=== PATIENT | female | born 1995 | race Caucasian/White ===

== ENCOUNTER 2019-12-31 17:21 | Inpatient (IN) ==
[2019-12-31] MEDS ORDERED: NORCO-5 PO ONE (18:41)
--- NOTE | 2019-12-31 18:53 | PROVIDER DOCUMENTATION ---
HPI-Abdominal Pain/GI Problem - General Chief Complaint: Generalized Pain Stated Complaint: STOMACH PAIN Time Seen by Provider: 12/31/19 17:32 Source: patient Allergies/Adverse Reactions: Patient Allergies Allergy/AdvReac Type Severity Reaction Status Date / Time No Known Allergies Allergy Verified 09/05/14 20:38 Home Medications: Home Medication List Medication Instructions Recorded Confirmed Last Taken Type Pnv Cmb#95/Ferrous Fumarate/FA 1 tab PO DAILY 09/05/14 09/05/14 09/05/14 00:00 History [ Tablet] Oxycodone HCl/Acetaminophen 1 each PO Q4-6H PRN PRN #40 tablet 09/08/14 Unknown Rx [Percocet 10-325 mg Tablet] Oxycodone HCl/Acetaminophen 1 tab PO Q6H PRN PRN #40 tablet 09/08/14 Unknown Rx [Percocet 10-325 mg Tablet] Dicyclomine [Bentyl] 20 mg PO 4XDAY #30 cap 12/14/19 Unknown Rx Hydrocodone/Acetaminophen [Riva 1 ea PO Q6H PRN PRN #12 tab 12/14/19 Unknown Rx 5-325 Tablet] Promethazine [Phenergan] 25 mg PO Q6H PRN PRN #30 tab 12/14/19 Unknown Rx - History of Present Illness-ABD Nature of Presenting Problems: 24 yof with known cholelithiasis who was diagnosed on 12/17/19 via US presents with c/o continues pain and being out of pain medications. She was seen at clinic but they would not RX pain medications. She reports she has nausea without vomiting. Denies fever, chills. She does have nausea medications left but no pain meds Abdominal Pain Onset Location: reports: RUQ Pain Radiation: reports: shoulder (r) Quality of Pain: reports: aching Severity in ED: reports: moderate Onset/Duration: reports: other (since November 2019) Timing: reports: still present, intermittent Exposure to sick contacts?: No Associated Symptoms: reports: nausea Last BM: 24 hours ago Dark Stools Present?: reports: none noticed Rectal Bleeding: reports: none Rectal Pain: reports: none Emesis Description: reports: none Bruising or Bleeding Gums?: No Similar Symptoms Previously?: No Recently seen or treated by another doctor?: No Review of Systems - Adult - REVIEW OF SYSTEMS - ADULT Constitutional: reports: no symptoms reported. denies: see HPI, chills, fever, fatique, night sweats, weight gain, weight loss, other Eyes: reports: no symptoms reported. denies: see HPI, discharge, dry eyes, decreased vision, blurred vision, double vision, eye pain, redness, other Ears, Nose, Mouth & Throat: reports: no symptoms reported. denies: see HPI, ear discharge, ear pain, hearing loss, tinnitus, epistaxis, sinus problem, nose pain, loose teeth, mouth/dental pain, mouth swelling, hoarseness, throat pain, throat swelling, other Cardiovascular: reports: no symptoms reported. denies: see HPI, chest pain, edema, heart murmur, irregular heart rate, orthopnea, palpitations, poor circulation, PND, syncope, other Respiratory: reports: no symptoms reported. denies: see HPI, chronic cough, cough, dyspnea on exertion, excessive sputum production, hemoptysis, pleurisy, shortness of breath, wheezing, other Gastrointestinal: reports: see HPI, abdominal pain, nausea. denies: no symptoms reported, hematemesis, constipation, diarrhea, difficulty swallowing, frequent heartburn, poor appetite, rectal bleeding, vomiting, other Genitourinary: reports: no symptoms reported. denies: see HPI, dysuria, discharge, frequency, flank pain, frequent UTI's, hematuria, hesitency, incontinence, urinary retention, urgency, other Musculoskeletal: reports: no symptoms reported. denies: see HPI, bone pain, back pain, frequent leg cramps, joint pain, joint swelling, muscle aches, muscle weakness, neck pain, other Integumentary: reports: no symptoms reported. denies: see HPI, hives, hair loss, itching, mole changes, nail changes, rash, skin sores/ulcer, skin thickening, other Neurological: reports: no symptoms reported. denies: see HPI, ataxia, dizziness/vertigo, headache/migraines, loss of balance, numbness, paresthesia, seizure, slurred speech, syncope, tremors, other Psychiatric: reports: no symptoms reported. denies: see HPI, anxiety, anti-de pressant use, alcohol/drug dependence, depression, emotional problems, insomnia, panic attacks, suicidal thoughts, other Endocrine: reports: no symptoms reported. denies: see HPI, change in skin pigment, excessive sweating, goiter, cold intolerance, heat intolerance, increa sed hunger, increased thirst, polyuria, other Hematologic/Lymphatic: reports: no symptoms reported. denies: see HPI, blood clots, easy bruising, low blood count, lymphedema, prolonged bleeding, swollen lymph nodes, transfusions, other Allergic/Immunologic: reports: no symptoms reported. denies: see HPI, allergic reactions, allergic rhinitis, asthma, eczema, food allergy, frequent infections, hay fever, hives, positive PPD, urticaria, other Past History - Adult - PAST MEDICAL HISTORY-ADULT Review of Records: reports: Nursing Assessment Review, Social history reviewed & non-contributory. Major Childhood Illnesses: reports: denies history Cardiovascular: reports: denies history Respiratory: reports: denies history Gastrointestinal: reports: denies history Obstetrical/Gynecological: reports: denies history Genitourinary: reports: denies history Musculoskeletal: reports: denies history Neurological: reports: denies history Endocrine/Immune: reports: denies history Other Conditions: reports: denies history - PRIOR SURGERIES/PROCEDURES Surgical/Procedure History: reports: gastric bypass (VSG) - IMMUNIZATION STATUS Childhood Immunizations: See Nurse Assessment Flu Vaccine: See Nurse Assessment - FAMILY HISTORY Family History: reviewed, not pertinent Physical Exam-General - PHYSICAL EXAM-ADULT Initial Vital Signs Reviewed: Yes - CONSTITUTIONAL General Appearance: appears well, alert, no apparent distress - EYES Eyes: PERRL/EOMI, pink conjunctivae - HEAD, EARS, NOSE, MOUTH & THROAT HENMT: normocephalic/atraumatic, moist mucous membranes, normal ENT inspection - NECK Neck: non-tender, full range of motion, supple - RESPIRATORY Respiratory: chest non-tender, lungs clear, normal breath sounds, no pleuratic chest pain, no respiratory distress, no accessory muscle use - CARDIOVASCULAR Cardiovascular: normal peripheral pulses, regular rate, rhythm, no edema, no gallop, no JVD, no murmur - GASTROINTESTINAL (ABDOMEN) Abdominal Exam: normal bowel sounds, soft, tenderness - LYMPHATIC Lymphatic: no adenopathy - MUSCULOSKELETAL Back Exam: normal inspection, no CVA tenderness, no vertebral tenderness Extremity: normal range of motion, non-tender, normal gait Peripheral Pulses: radial (R): 2+, radial (L): 2+ - SKIN Integumentary: normal color, normal turgor, warm/dry - NEUROLOGIC Neurologic: grossly normal - PSYCHIATRIC Psych/Mental Status: normal mood/affect, oriented x 3 Progress - PLAN OF CARE/RESULTS Progress/Plan/Lab Results: Vital Signs - 8 hr 12/31/19 17:32 Temperature 98 F Pulse Rate 69 Respiratory Rate 18 Blood Pressure 103/64 O2 Sat by Pulse Oximetry 96 Orders Category Date Time Status CBC WITH ELECTRONIC DIFF [HEME] Stat Lab 12/31/19 17:37 Uncollected COMPREHENSIVE METABOLIC PANEL [CHEM] Stat Lab 12/31/19 17:37 Uncollected LIPASE [CHEM] Stat Lab 12/31/19 17:37 Uncollected UA NIMS W/REFLEX CULT [URINALYSIS] Stat Lab 12/31/19 17:37 Uncollected Hydrocodone/APAP 5 mg/325 mg [Riva-5] Med 12/31/19 18:41 Discontinued 1 each PO NOW ONE initial US: EXAM: US ABDOMEN-COMPLETE 12/17/2019 HISTORY: RT UPPER QUAD PN TECHNIQUE: Right upper quadrant ultrasound COMMENT: The pancreatic head and body are normal in appearance the remainder is obscured. The portions of the aorta and inferior vena cava which are visible are unremarkable. There is very poor detail seen in the liver. There is antegrade flow in the portal vein. There are multiple echoes in the gallbladder. The gallbladder is not distended and there is no evidence of para cholecystic fluid. There is no sonographic Ta sign. The common bile duct measures 5 mm. The kidneys are without evidence of hydronephrosis or mass. The spleen is not enlarged. There are no abnormal fluid collections. IMPRESSION: Cholelithiasis. Electronically signed by Maicol Terrazas 12/17/2019 1:37 PM 12/17/19 1337 Interpreting Physician: Maicol Terrazas MD Dictated Date/Time: 12/17/19 1336 cc: Akilah Sood; Akilah Sood Result Diagrams: 12/31/19 19:55 12/31/19 19:55 - ULTRASOUND (By Radiology) 1 US Study: Gallbladder Impression: Abnormal (1.Cholelithiasis no evidence of wall thickening, no sono veronica sugn 2. Dilated common bile duct measuring 8mm) - CONSULTS/PCP/HOSPITALIST Notification #1 *Consult/PCP/Hospitalist*: Dr. Rodriguez Time Discussed: 20:58 Consult Disposition: Admit (Repeat US, Begin Zosyn, Admit to hospitalist at [facility] for fidel) #2 Consult: Dr Joshi @ [id number] Time Discussed: 23:34 Consult Disposition: Admit Departure - Departure Date of Disposition Decision: 12/31/19 Time of Disposition Decision: 23:30 DIAGNOSIS: Cholelithiasis, Elevated liver enzymes Disposition: ADMITTED INPATIENT 09 Certified Medical Emergency: Emergent Condition: Stable Referrals and Follow-Ups: Troy Rodriguez MD [Primary Care Provider] - - Critical Care Note This patient required my direct & personal management of CC.: No Attestation - Physician/ JOHNATHAN Attestation Patient care was provided by Advanced Practice Provider:: Yes Advanced Practice Provider:: Yanelis De Leon Advanced Practice Provider documentation review:: The Mid-level provider documentation, treatment plan and medical decision making was reviewed by the physician who agrees with all treatment and medical decision making by the MLP. The physician spent face to face time with patient:: No Advanced Practice Provider documentation review:: Supervising physician onsite and consulted in the evaluation and care of this patient. The physician did not have a face to face encounter with the patient.
[2019-12-31 20:08] LABS: URINE SOURCE CLEAN CATCH
[2019-12-31 20:15] LABS: BASO# 0.04 X1000 (0.0-0.2); BASO% 0.6 % (0.0-0.8); EOS# 0.06 X1000 (0.0-0.7); EOS% 0.9 % (0.0-10.0); HEMATOCRIT 37.4 % (37.0-47.0); LYMPH# 1.62 X1000 (1.2-3.4); LYMPH% 25.3 % (20.5-51.1); MCHC 32.1 g/dL (33-37); MCV 87.4 FL (81-99); MONO# 0.36 X1000 (0.11-0.59); MONO% 5.6 % (1.7-9.3); MPV 12.6 FL (7.4-10.4); NEUT# 4.32 X1000 (1.4-6.5); NEUT% 67.6 % (42.2-75.2); PLT 204 X1000 (130-400); RBC 4.28 XMIL (4.2-5.4); RDW 12.9 % (11.5-14.5)
[2019-12-31 20:41] LABS: AGAP 15; ALBUMIN 4.8 g/dL (3.5-5.0); ALKALINE PHOSPHATASE 143 U/L (32-104); BUN 14 mg/dL (8-22); CALCIUM 9.2 mg/dL (8.8-10.2); CHLORIDE 103 mmol/L (98-107); COSMO 283; CREATININE 0.5 mg/dL (0.5-0.9); ESTIMATED GFR > 60; GLUCOSE 86 mg/dL (70-104); GOT 214 U/L (10-30); GPT 212 U/L (10-36); LIPASE 24 U/L (13-60); POTASSIUM 3.9 mmol/L (3.5-5.1); SODIUM 142 mmol/L (136-145); TCO2 24 mmol/L (25-35); TOTAL PROTEIN 7.8 g/dL (6.3-8.3)
[2019-12-31 20:48] LABS: UR EPITHELIAL CELLS <10 /HPF (<10); URINE BACTERIA NEGATIVE /HPF; URINE RBC <10 /HPF (<10); URINE WBC <10 /HPF (<10); URINE YEAST NONE SEEN
[2019-12-31 20:49] LABS: BILIRUBIN URINE NEGATIVE (NEGATIVE); BLOOD URINE NEGATIVE (NEGATIVE); COLOR YELLOW; GLUCOSE URINE NEGATIVE (NEGATIVE); KETONE URINE 60 mg/dL (NEGATIVE); TURBIDITY URINE CLEAR (CLEAR); URINE CASTS NONE SEEN; URINE CRYSTALS NONE SEEN; URINE SMALL ROUND CELLS NONE SEEN
[2019-12-31 20:50] LABS: LEUKOCYTES URINE NEGATIVE (NEGATIVE); NITRITE URINE NEGATIVE (NEGATIVE); PROTEIN URINE NEGATIVE (NEGATIVE); SP GRAVITY URINE 1.021; UROBILINOGEN URINE NORMAL (NORMAL)
[2019-12-31] MEDS ORDERED: ZOSYN 3.375 GM in NS 50 ML IV ONE (20:59)
[2020-01-01] MEDS ORDERED: NS 1,000 ML IV ONE (01:30)
[2020-01-01] MEDS ORDERED: ZOFRAN IV PRN (01:30)
[2020-01-01] MEDS: MORPHINE IV PRN ×2 (01:54→21:18)
[2020-01-01] MEDS ORDERED: NS 1,000 ML IV SCH (02:30)
[2020-01-01] MEDS ORDERED: ZOSYN 3.375 GM in NS 50 ML IV SCH (03:00)
--- NOTE | 2020-01-01 06:39 | HISTORY AND PHYSICAL ---
CHIEF COMPLAINT: Right upper quadrant abdominal pains for about 4 weeks. HISTORY OF PRESENT ILLNESS: Ms. Dolores Dean is a 24-year-old female who has a history of cholelithiasis, and has had pain in the right upper quadrant region for about 4 weeks. It has been progressively getting worse. She describes having some nausea along with diarrhea. She was seen earlier at [facility], but has now been referred to [facility] for further management. Abdominal ultrasound done on 12/17/2019 shows evidence of multiple echoes in the gallbladder. The gallbladder is not distended, and there is no evidence of pericholecystic fluid. The common bile duct measures about 5 mm. PAST MEDICAL HISTORY: Cholelithiasis. SOCIAL HISTORY: No history of cigarette smoking. No alcohol or drug use. ALLERGIES: No known medication allergies. FAMILY HISTORY: Positive for diabetes. PAST SURGICAL HISTORY: She has had gastric sleeve procedure. MEDICATIONS: 1. Phenergan 25 p.o. q.6h p.r.n. 2. [place] 1 q.6h p.r.n. 3. Bentyl 20 mg 4 times a day. 4. Percocet 10/325 q.6h p.r.n. 5. vitamins 1 p.o. daily. REVIEW OF SYSTEMS: Constitutional: No fever. SOLE SEAMER: No headaches. Eyes: No blurred vision. ENT: No sinus problems or hearing loss. Cardiovascular: No chest pain. Respiratory: Denies cough. : No dysuria. Musculoskeletal: No joint pains. Dermatology: No skin lesions. Hematology: No bleeding problems. Psychiatric: No anxiety or depression. Endocrinology: No diabetes or thyroid disease. PHYSICAL EXAMINATION: VITAL SIGNS: Temperature 97.9 degrees, pulse 68, respirations 18, blood pressure 101/61, and oxygen saturation is 100%. HEENT: She is atraumatic, normocephalic. She is anicteric. Extraocular movements intact. No oral lesions noted. NECK: No lymphadenopathy or thyromegaly. CARDIOVASCULAR: S1, S2. RESPIRATORY: There is evidence of good air entry bilaterally. ABDOMEN: Soft. She has some tenderness in the right upper quadrant region with deep palpation. No masses felt. EXTREMITIES: No evidence of edema. CENTRAL NERVOUS SYSTEM: No obvious focal deficits noted. LABORATORY DATA: WBC 6.4, hematocrit 37.4 with a platelet count of 204,000. Sodium 142, potassium 3.9, chloride 103, bicarbonate 24, BUN 14, and creatinine 0.5. AST 140, ALT 212, and alkaline phosphatase 143. Abdominal ultrasound done on 12/17/2019 shows evidence of cholelithiasis. Common bile duct measuring about [*]. ASSESSMENT AND PLAN: 1. Symptomatic cholelithiasis. Maintain patient NPO. Optimize pain control. Place patient on antiemetics. Consult with Surgery for possible laparoscopic cholecystectomy. 2. Abnormal liver function test. Suspect may be related to biliary duct obstruction. We will check hepatitis panel as well. 3. History of gastric sleeve procedure. Aware. 4. Deep vein thrombosis prophylaxis. Sequential compression devices. 5. Gastrointestinal prophylaxis. Proton pump inhibitor. cc: Jerry Joshi MD
--- NOTE | 2020-01-01 07:48 | Diag Imaging Result Doc PS360 ---
US GB < RUQ (LIMITED) - 12/31/2019 INDICATION: gallstones, rising liver enzymes TECHNIQUE: COMPARISON: 12/17/2019 FINDINGS: There are numerous shadowing stones in the gallbladder filling about half the gallbladder lumen. The appearance is stable from prior. The gallbladder is not overly distended. No gallbladder tenderness. Common bile duct measures 8 mm. This has increased somewhat since prior. The pancreas is obscured. The liver is normal. The right kidney is normal. Aorta, IVC, and main portal vein are patent. IMPRESSION: 1. There is new, mild dilation of the common bile duct. This may indicate common bile duct obstruction with a gallstone. 2. Severe cholelithiasis. Electronically signed by Edin Abdul 01/01/2020 7:45 AM
[2020-01-01] MEDS ORDERED: DIPRIVAN 1% ONE (13:45)
[2020-01-01] MEDS ORDERED: NORCURON ONE (13:47)
[2020-01-01] MEDS ORDERED: SODIUM CHLORIDE 0.9% 10 ML ONE (13:47)
[2020-01-01] MEDS ORDERED: XYLOCAINE-MPF 2% ONE (13:47)
[2020-01-01] MEDS ORDERED: VERSED ONE ×2 (13:48→16:00)
[2020-01-01] MEDS ORDERED: FENTANYL ONE (13:48)
[2020-01-01] MEDS ORDERED: NEOSTIGMINE ONE (14:14)
[2020-01-01] MEDS ORDERED: ROBINUL ONE (14:14)
[2020-01-01] MEDS ORDERED: SENSORCAINE 0.25%/EPI 1:200,000 ONE (14:43)
[2020-01-01] MEDS ORDERED: SODIUM CHLORIDE 0.9% ONE (14:43)
[2020-01-01] MEDS ORDERED: LR 1,000 ML ONE (14:43)
[2020-01-01] MEDS: ZOSYN 3.375 GM in NS 50 ML IV SCH ×2 (16:13→21:20)
[2020-01-01] MEDS: DILAUDID ONE ×4 (18:29→18:43)
--- NOTE | 2020-01-01 18:37 | PROGRESS NOTE ---
DATE: 01/01/2020 BRIEF PROGRESS NOTE: Patient was admitted with abdominal pain, nausea, and vomiting. She was found to have choledocholithiasis. Currently n.p.o. for possible cholecystectomy later today. Initially planned on getting GI involved to see if she might need an ERCP, but it looks like surgery is planning on taking the gallbladder out, so we will hold off and let them do an intraoperative cholangiogram to see if she needs further evaluation by GI. Pain well controlled. No further nausea. No clear sign of cholecystitis. Hold off on antibiotics for now. Continue symptomatic treatment and fluids.
--- NOTE | 2020-01-01 19:12 | GENERAL SURGERY CONSULTATION ---
DATE: 01/01/2020 CHIEF COMPLAINT: Abdominal pain with history of cholelithiasis. REASON FOR CONSULTATION: Cholelithiasis. HISTORY OF PRESENT ILLNESS: This is a 24-year-old, female, who has had long-standing epigastric right upper quadrant episodic pain. These bouts typically were about an hour a day, then they became longer, more frequent, resulting in her going to the ER early this morning. She has history of a sleeve gastrectomy and greater than 100-pound weight loss several years ago, and also a section and uncomplicated at age 18. She denies any jaundice. No pruritus. Bowel function has been normal. Some nausea. No fevers. MEDICAL HISTORY: History of obesity. SURGICAL HISTORY: Sleeve gastrectomy, section, liposuction. SOCIAL HISTORY: No tobacco, alcohol, or drugs. She does not work. FAMILY HISTORY: Significant for breast cancer. REVIEW OF SYSTEMS: A 10-point review of systems performed and negative other than what is mentioned in HPI. PHYSICAL EXAMINATION: She is afebrile. Pulse 94, blood pressure 104/57, oxygen saturation 100%.General: She is alert, in no acute distress. HEENT: No scleral icterus. No cervical mass. Cardiovascular: Normal rate. Pulmonary: No increased work of breathing. Abdomen: Soft, nontender, nondistended. Integument: Warm and dry. Psychiatric: Appropriate affect. Neurologic: No gross deficits. LABORATORY AND DIAGNOSTIC DATA: Her white count is normal at 6, hematocrit is 37. However, bilirubin is normal, but her AST, ALT, and alkaline phosphatase are mildly elevated. Lipase normal. Urinalysis negative for nitrites, leukocytes. I reviewed her imaging. Her ultrasound shows more prominence of the common bile duct and innumerable stones within the gallbladder. The bile duct measures 8 mm. ASSESSMENT: A 24-year-old female with symptomatic cholelithiasis, possible choledocholithiasis. PLAN: We discussed risks of bleeding, infection, damage to surrounding structures, possibility of need for ERCP, the possibility of conversion to open. She understands all this and consents. Plan for laparoscopic cholecystectomy with cholangiogram with ERCP if indicated. We will keep her on antibiotics, NPO, and IV fluids for now. cc: Olesya Rodriguez MD
--- NOTE | 2020-01-01 20:32 | Diag Imaging Result Doc PS360 ---
EXAM: OPERATIVE CHOLANGIOGRAM 01/01/2020 HISTORY: CHOLELITHIASIS TECHNIQUE: One view, 46 seconds fluoroscopy time, COMMENT: Contrast is seen in the gallbladder cystic duct common hepatic duct intrahepatic ducts and the common bile duct with the exception of the far distal common bile duct. There is no contrast demonstrated in the duodenum. IMPRESSION: The possibility of retained stones, debris or other obstruction at the distal common bile duct cannot be excluded. Electronically signed by Maicol Terrazas 01/01/2020 8:30 PM
[2020-01-01] MEDS: PROTONIX IV SCH (21:22)
[2020-01-01] MEDS: SODIUM CHLORIDE 0.9% INJ SCH (21:22)
[2020-01-01] MEDS: NS 1,000 ML IV SCH (23:54)
[2020-01-02] MEDS: MORPHINE IV PRN ×4 (01:09→15:03)
--- NOTE | 2020-01-02 02:57 | OPERATIVE NOTE ---
PROCEDURE DATE: 01/01/2020 PREOPERATIVE DIAGNOSIS: Symptomatic cholelithiasis. POSTOPERATIVE DIAGNOSIS: Choledocholithiasis. PROCEDURE PERFORMED: Laparoscopic cholecystectomy with cholangiogram. ESTIMATED BLOOD LOSS: Was 50 mL. SPECIMENS: Gallbladder. ANESTHESIA: General. INDICATIONS: A 24-year-old female with longstanding symptomatic gallstones, who presented with worsening abdominal pain. OPERATIVE FINDINGS: Chronically inflamed gallbladder, innumerable stones within the lumen of the gallbladder and cystic duct was packed and significantly dilated. There was adhesion from her previous sleeve gastrectomy. Interpretation of cholangiogram showed flow of contrast through a long dilated cystic duct into a dilated common bile duct, with a an obstruction of flow into the duodenum related to impacted stones distal in the common bile duct, intrahepatic radicles appeared normal. OPERATIVE NOTE: Risks, benefits, alternatives were discussed with patient. She consented to the procedure, seen preoperatively. Surgical site was confirmed. She was taken to the operating room, placed in supine position, general anesthesia induced. Her abdomen was prepped with chlorhexidine solution and draped in usual fashion. After time-out, a supraumbilical incision was made separate from one her previous trocar sites, carried down the fascia. The fascia was incised and the abdomen was entered in a controlled fashion. A 12 mm Casper trocar was placed under direct visualization. The abdomen was insufflated to 15 mmHg. Three additional trocars were placed along the costal margin, they were 5 mm. The gallbladder was retracted cephalad. We took down omental adhesions, identifying the infundibulum cystic junction, encircled this, but it was very dilated. As such, we continued our dissection distally but it remained dilated down to the level of the common duct. As such, we upsized the epigastric trocar to a 12. A long clip was placed on the gallbladder side. We made a ductotomy and milked out numerous stones that were within the lumen, numerous very small stones emanated distally. We continued to do this, flushing it into we felt we had enough out. We had also encircled the cystic artery during this process as well. Then, the cholangiogram was performed with above findings. After satisfactory cholangiogram, we re-established our exposure. We divided the cystic artery to provide better retraction and exposure, and a 30 mm gold load stapler was used to close the duct, as it was quite dilated. We felt that this was in fact the cystic duct based off the cholangiogram and not the infundibulum of the gallbladder. We were well away from the common bile duct. At this point, we removed the gallbladder intact. Placed in EndoCatch bag from the surface of the liver. There was a feeding vein posteriorly that we doubly clipped it. We then copiously irrigated using the 10 mm suction device. We suctioned out the small stones, felt we had done this adequately. Zain drain was placed the gallbladder fossa. Trocars removed. We had to extend the fascial incision significantly to remove the gallbladder out given the large size, and then the fascial incisions were closed with 3-0 Vicryl. Skin was closed surgical clips. Gauze and Medipore dressing was applied. No family was available. We will need to consult GI, who is aware of the patient, for ERCP. cc: Olesya Rodriguez MD
[2020-01-02] MEDS: ZOSYN 3.375 GM in NS 50 ML IV SCH ×4 (05:01→22:16)
[2020-01-02] MEDS: PROTONIX IV SCH (05:02)
[2020-01-02] MEDS: SODIUM CHLORIDE 0.9% INJ SCH (05:02)
[2020-01-02] MEDS: NS 1,000 ML IV SCH ×2 (05:02→19:00)
[2020-01-02 16:43] LABS: BASO# 0.02 X1000 (0.0-0.2); BASO% 0.2 % (0.0-0.8); EOS# 0.04 X1000 (0.0-0.7); EOS% 0.5 % (0.0-10.0); HEMATOCRIT 32.8 % (37.0-47.0); HEMOGLOBIN 10.4 g/dL (12.0-16.0); LYMPH# 2.25 X1000 (1.2-3.4); LYMPH% 27.7 % (20.5-51.1); MCH 28.2 PG (27-31); MCHC 31.7 g/dL (33-37); MCV 88.9 FL (81-99); MONO# 0.74 X1000 (0.11-0.59); MONO% 9.1 % (1.7-9.3); NEUT# 5.08 X1000 (1.4-6.5); NEUT% 62.5 % (42.2-75.2); PLT 163 X1000 (130-400); RBC 3.69 XMIL (4.2-5.4); WBC 8.13 X1000 (4.8-10.8)
[2020-01-02 17:09] LABS: AGAP 9; ALBUMIN 3.9 g/dL (3.5-5.0); ALKALINE PHOSPHATASE 137 U/L (32-104); BUN 7 mg/dL (8-22); CALCIUM 8.8 mg/dL (8.8-10.2); CHLORIDE 102 mmol/L (98-107); COSMO 272; CREATININE 0.7 mg/dL (0.5-0.9); ESTIMATED GFR > 60; GLUCOSE 98 mg/dL (70-104); GOT 59 U/L (10-30); GPT 129 U/L (10-36); POTASSIUM 3.5 mmol/L (3.5-5.1); SODIUM 137 mmol/L (136-145); TCO2 26 mmol/L (25-35); TOTAL BILIRUBIN 0.57 mg/dL (0.20-1.00); TOTAL PROTEIN 5.9 g/dL (6.3-8.3)
--- NOTE | 2020-01-02 18:20 | PROGRESS NOTE ---
DATE: 01/02/2020 INTERVAL HISTORY: Patient is status post laparoscopic cholecystectomy. Intraoperative cholangiogram showed retained stone in the duct, however, and now awaiting GI evaluation for likely ERCP. Some expected postoperative tenderness around her incisions. No acute events. No new complaints. REVIEW OF SYSTEMS: A 12-point review of systems is negative, except as per interval history. VITAL SIGNS: Temperature max 98.5 degrees, pulse 72, respirations 20, blood pressure 119/56, O2 saturation 100% on room air. OBJECTIVE: General: No acute distress. Vitals: As above. HEENT: Normocephalic, atraumatic. Moist mucous membranes. No cervical adenopathy. Cardiovascular: Regular rate and rhythm. No murmurs noted. Pulmonary: Clear to auscultation bilaterally. No wheezing, rales, or rhonchi. Abdomen: Soft, expected postoperative tenderness around incisions. Surgical drain in place with serosanguineous drainage. Bowel sounds decreased, but present. Extremities: Peripheral pulses intact. No clubbing or cyanosis. Neurologic: Cranial nerves grossly intact. No focal deficits identified. Psychiatric: Normal mood and affect. Awake, alert, oriented x3. ASSESSMENT AND PLAN: 1. Choledocholithiasis and cholecystitis. The patient is now status post laparoscopic cholecystectomy, but still with retained stone and will likely need ERCP to remove that. Continue to monitor. Continue antibiotics with Zosyn for now. 2. Nausea and vomiting. Resolved. 3. Obesity. Patient counseled on cessation.
--- NOTE | 2020-01-02 22:26 | GENERAL SURGERY PROGRESS NOTE ---
DATE: 01/02/2020 SUBJECTIVE: The patient is doing okay. She is sore. No nausea or vomiting. She is tolerating a liquid diet. OBJECTIVE: She is afebrile. Vital signs are stable.General: She is awake, alert, and oriented x3. No acute distress. GI: Soft, appropriately tender. Incisional dressing is clean and dry. LABORATORY: None today. ASSESSMENT/PLAN: A 24-year-old female, postoperative day 1, laparoscopic cholecystectomy. She has retained common bile duct stones, and we are awaiting a gastroenterology evaluation and future ERCP. cc: Morgan Shane MD
--- NOTE | 2020-01-03 03:56 | GASTROENTEROLOGY CONSULTATION ---
DATE: 01/02/2020 REQUESTING PHYSICIAN: Sam Ramires MD. PRIMARY SURGEON: Olesya Rodriguez MD. REASON FOR CONSULT: Cholelithiasis. HISTORY OF PRESENT ILLNESS: Ms Dean is 24-year-old female admitted on 01/01/2020 with right upper quadrant pain. She was seen by general surgery. Abdominal ultrasound was done which showed evidence of gallstones. She had a cholecystectomy with Dr. Rodriguez last night. Her gallbladder appeared to be chronically inflamed with innumerable stones in the lumen of the gallbladder and cystic duct was packed and significantly dilated. The intraoperative cholangiogram showed possible obstruction to the flow of contrast into duodenum, suggesting possible distal common bile duct stone. Gastroenterology was requested for further management. PAST MEDICAL HISTORY: Cholelithiasis. PAST SURGICAL HISTORY: 1. Gastric sleeve procedure. 2. Cholecystectomy yesterday. FAMILY HISTORY: Diabetes. ALLERGIES: No known drug allergies. SOCIAL HISTORY: No history of tobacco, alcohol, illicit drugs. MEDICATIONS IN THE HOSPITAL: Include morphine, normal saline at 75 mL/h, Zofran 4 mg p.o. q.4-6 hours as needed, Protonix IV once daily, Zosyn IV q.6 hours. She is currently on clear liquid diet. REVIEW OF SYSTEMS: Denies any current fevers, rigors, chills, chest pain, shortness of breath, dyspnea. Denies any vomiting blood. Denies any blood in the stools. She complains soreness in the abdomen from recent surgery. PHYSICAL EXAMINATION: Vital signs: Temperature 98.3 degrees, pulse of 76, respiratory rate of 14, blood pressure 106/49, saturating 98% on room air. Body weight of 193 pounds. BMI of 31.2 kg/m2. General: Obese, lying in bed, in no acute distress. HEENT: Mild pallor. No icterus. Pupils equal, reactive to light. Neck: Supple. Abdomen: Obese, soft. Mild discomfort in the right upper quadrant from recent surgery, there is a drain in the right upper quadrant draining serosanguineous fluid. Bowel sounds are hypoactive. Extremities: No cyanosis, clubbing. Neurologic: She is alert, awake, oriented. LABS: Hemoglobin and hematocrit is 10.4 and 32.8, white count of 8.13, platelet count of 160,000. Sodium 139, potassium 3.5, chloride 102, bicarb 23, anion gap 9, BUN of 7, creatinine 0.7. Glucose of 98, calcium is 8.8, total bilirubin is 0.57, AST 59, ALT 129, alkaline phosphatase 137, total protein 5.9, albumin 3.9. IMPRESSION AND PLAN: 1. Choledocholithiasis. 2. Status cholecystectomy on 01/01/2020. 3. Status post gastric sleeve procedure. 4. Obesity. 5. Mild anemia. 6. Mild liver enzymes. RECOMMENDATIONS: We will continue patient on clear liquid diet. We will keep on IV fluids. We will keep her on IV pain control, IV antiemetics. We will keep her on IV antibiotics for now. We will follow liver enzymes. If her liver enzymes continue to be elevated then she may be a candidate for ERCP with Dr. Grigsby. I will follow along. The procedure of ERCP discussed the patient, including the risks, benefits, indications and alternatives. The patient above plan of care was with the patient and all questions answered. Please call with any further questions. cc: MD Olesya Krishna MD Kenneth E. Mashburn, MD
[2020-01-03] MEDS: SODIUM CHLORIDE 0.9% INJ SCH (04:42)
[2020-01-03] MEDS: PROTONIX IV SCH ×2 (04:42→05:23)
[2020-01-03] MEDS: ZOSYN 3.375 GM in NS 50 ML IV SCH ×4 (04:42→22:26)
[2020-01-03] MEDS: MORPHINE IV PRN ×3 (04:42→18:24)
[2020-01-03] MEDS: PERIDEX MT SCH ×2 (08:33→22:26)
[2020-01-03] MEDS: NS 1,000 ML IV SCH ×2 (10:55→22:25)
--- NOTE | 2020-01-03 15:21 | GENERAL SURGERY PROGRESS NOTE ---
DATE: 01/03/2020 SUBJECTIVE: The patient reports to feeling better. Less pain. No nausea or vomiting. OBJECTIVE: She is afebrile. Vital signs are stable. General: She is awake and alert, oriented x3. No acute distress. Gastrointestinal: Soft. Minimally tender. Incisional dressing is clean and dry. ADALBERTO drain with old bloody drainage. No bile. Laboratory: AST 59, ALT 129, alkaline phosphatase 137, total bilirubin 0.57. CBC reviewed and unremarkable. ASSESSMENT AND PLAN: A 24-year-old female status post laparoscopic cholecystectomy with retained common bile duct stones. Her symptoms are improving. Her liver function tests are improving. It remains to be seen if she actually will require an endoscopic retrograde cholangiopancreatography. We will follow up her liver function tests again tomorrow. cc: Morgan Shane MD
[2020-01-03 16:14] LABS: AGAP 11; ALB/GLOB RATIO 1.8; ALBUMIN 3.6 g/dL (3.5-5.0); ALKALINE PHOSPHATASE 112 U/L (32-104); BUN 7 mg/dL (8-22); CALCIUM 8.6 mg/dL (8.8-10.2); CHLORIDE 107 mmol/L (98-107); COSMO 282; CREATININE 0.6 mg/dL (0.5-0.9); ESTIMATED GFR > 60; GLUCOSE 90 mg/dL (70-104); GOT 31 U/L (10-30); GPT 92 U/L (10-36); POTASSIUM 3.6 mmol/L (3.5-5.1); SODIUM 143 mmol/L (136-145); TCO2 25 mmol/L (25-35); TOTAL BILIRUBIN 0.36 mg/dL (0.20-1.00); TOTAL PROTEIN 5.6 g/dL (6.3-8.3)
--- NOTE | 2020-01-03 18:12 | PROGRESS NOTE ---
DATE: 01/03/2020 INTERVAL HISTORY: Patient still with some expected postop tenderness but otherwise essentially asymptomatic. No new complaints. No acute events overnight. REVIEW OF SYSTEMS: Twelve point review of systems negative except as per interval history. LABS: Significant for hemoglobin 10.4, hematocrit 32.8. AST 59, ALT 129, alkaline phosphatase 137, bilirubin 0.57. VITAL SIGNS: Temperature 98.4 degrees, pulse 65, respirations 20, blood pressure 96/42, O2 saturation 99% on room air. PHYSICAL EXAMINATION: General: No acute distress. Vital signs: As above. HEENT: Normocephalic, atraumatic. Moist mucous membranes. No cervical adenopathy. Cardiovascular: Regular rate and rhythm. No murmurs noted. Pulmonary: Clear to auscultation bilaterally. No wheezing, rales, or rhonchi. Abdomen: Soft. Mild expected postop tenderness. Bowel sounds decreased but present. Extremities: Peripheral pulses intact. No clubbing or cyanosis. Neurologic: Cranial nerves grossly intact. No focal deficits identified. Psychiatric: Normal mood and affect. Awake, alert, oriented x3. ASSESSMENT AND PLAN: 1. Choledocholithiasis and cholecystitis. The patient is status post laparoscopic cholecystectomy, but intraoperative cholangiogram showing retained stone. GI on board and plans on monitoring LFTs and depending what they do, may have to do ERCP within the next 24 to 48 hours. Continue antibiotics with Zosyn for now. 2. Nausea and vomiting, resolved. 3. Obesity. Patient has been counseled on diet and exercise. 4. Anemia, mild. We will monitor.
--- NOTE | 2020-01-04 04:00 | GASTROENTEROLOGY PROGRESS NOTE ---
DATE: 01/03/2020 SUBJECTIVE: The patient is resting in bed. She is complaining of soreness at the surgical site. She was able to move her bowels today. She is on a clear liquid diet. She denies any nausea or vomiting. She denies any fevers, rigors or chills. OBJECTIVE: Vital signs: Temperature is 98.4, pulse of 65, respiratory rate 20, blood pressure of 92/42, O2 saturation is 98% in room air. Body weight of 193 pounds. BMI of 31.2 kg/m2. General Appearance: Obese, lying in bed, in no acute distress. HEENT: Mmild pallor. No icterus. Neck: Supple. Abdomen: There is a drain in the right upper quadrant. Soreness in the abdomen at the surgical site. No rebound or guarding. Extremities: No cyanosis or clubbing. Neurologic: Alert, awake and oriented x3. LABORATORY DATA: Hemoglobin and hematocrit is 10.4 and 32.8, white count of 8.13, platelet count of 123,000. Sodium is 139, potassium is 3.5, chloride of 102, bicarbonate is 29, BUN of 7, creatinine 0.7, glucose of 98, calcium is 8.8. Total bilirubin is 0.57, AST 59, ALT 129, alkaline phosphatase 137, total protein is 7, albumin is 3.9. IMPRESSION AND PLAN: 1. Choledocholithiasis as seen on intraoperative cholangiogram. 2. Status post cholecystectomy on 01/01/[address] Sukhdev Rodriguez. 3. Status post gastric sleeve procedure in December of 2017, with a net weight loss of 130 pounds. 4. Obesity. 5. Mild anemia. 6. Mildly elevated liver enzymes. RECOMMENDATIONS: We will continue the patient on a clear liquid diet. We will check a CMP today. We will continue her on IV fluids. We will continue IV pain control, IV antiemetics and IV antibiotics. We may plan to do ERCP tomorrow with Dr. Grigsby if her liver enzymes continue to be elevated. I have discussed the risks, benefits, indications and alternatives to the ERCP with the patient and all questions were answered. The patient acknowledges understanding and agrees to comply with the plan of care. Please call with any further questions. cc: MD Dr. Ike Krishna Lanier, MD
[2020-01-04] MEDS: ZOSYN 3.375 GM in NS 50 ML IV SCH ×3 (05:12→17:04)
[2020-01-04] MEDS: SODIUM CHLORIDE 0.9% INJ SCH (05:13)
[2020-01-04] MEDS: PROTONIX IV SCH (05:13)
[2020-01-04 08:50] LABS: ALB/GLOB RATIO 1.6; ALBUMIN 3.4 g/dL (3.5-5.0); DIRECT BILIRUBIN 0.2 mg/dL (0.00-0.20); TOTAL BILIRUBIN 0.51 mg/dL (0.20-1.00); TOTAL PROTEIN 5.5 g/dL (6.3-8.3)
[2020-01-04] MEDS: PERIDEX MT SCH (09:09)
--- NOTE | 2020-01-04 17:23 | GASTROENTEROLOGY PROGRESS NOTE ---
DATE: 01/04/2020 SUBJECTIVE: Ms. Dean is a 23-year-old, female. She was sitting in the bed, having her breakfast. She is on clear liquids and mentioned that she has no appetite. The patient has complained of mild abdominal tenderness in the incisional area. She has a ADALBERTO drain that is draining serosanguineous fluid. She has denied any nausea and vomiting. The patient did mention that she had 1 bowel movement today. OBJECTIVE: Vital Signs: Temperature 98.3, pulse 58, respirations 19, blood pressure 105/51, oxygen saturation 100% on room air. The patient's weight is 193 pounds. BMI is 31.2 kg/m2. General: She is alert, oriented x3, and in no acute distress. HEENT: Pale conjunctivae, no icterus. Neck: Supple. Lungs: Clear to auscultation. Cardiovascular: Bradycardic. Abdomen: Mildly distended, tender in the incisional area with the ADALBERTO drain on the right side, draining serosanguineous fluid. Active bowel sounds heard in all 4 quadrants. Extremities: No clubbing, cyanosis, no edema. Pedal pulses 2+ present bilaterally. Neurologic: She is alert, oriented x3. LABORATORY DATA: WBCs 8.13, RBCs 3.69, hemoglobin is 10.4, hematocrit is 32.8, platelet count is 163,000. Sodium 143, potassium 3.6, chloride 107, carbon dioxide 25, anion gap 11, BUN 7, creatinine is 0.6. Glucose 90, calcium 8.6, total bilirubin 0.51, AST 31, ALT 77 alkaline phosphatase 97, albumin is 3.4. IMPRESSION AND PLAN: Elevated liver enzymes Obesity CBD stones on IOC S/p cholecystectomy PLAN: Ms. Dean is a 24-year-old female who recently had a cholecystectomy done. The patient currently has CBD stones. We will be doing an ERCP tomorrow with Dr. Grigsby and have discussed the risks, benefits, and alternatives of the procedure to the patient. We will continue patient with PPI daily. She is on IV fluids, normal saline at 75 mL/hr and receiving antibiotic Zosyn. We will continue to monitor the patient and follow the plan for PCP. The plan of care was discussed with Dr. Stein. Please call us for any further questions and concerns. Dictated by MOE Upton for Leo Stein MD cc: Leo Stein MD I have seen and examined the patient myself and I agree with the above plan of care. Please call us with any questions or concerns. LUANNE
[2020-01-04 17:45] LABS: URINE SOURCE CLEAN CATCH
[2020-01-04 17:50] LABS: BILIRUBIN URINE NEGATIVE (NEGATIVE); BLOOD URINE NEGATIVE (NEGATIVE); COLOR YELLOW; GLUCOSE URINE NEGATIVE (NEGATIVE); KETONE URINE 60 mg/dL (NEGATIVE); LEUKOCYTES URINE MODERATE (NEGATIVE); NITRITE URINE NEGATIVE (NEGATIVE); PH URINE 6.5; PROTEIN URINE NEGATIVE (NEGATIVE); SP GRAVITY URINE 1.019; TURBIDITY URINE HAZY (CLEAR); UROBILINOGEN URINE 2 mg/dL (NORMAL)
[2020-01-04 17:58] LABS: UR EPITHELIAL CELLS <10 /HPF (<10); URINE BACTERIA NEGATIVE /HPF; URINE RBC <10 /HPF (<10); URINE WBC <10 /HPF (<10)
--- NOTE | 2020-01-04 18:38 | PROGRESS NOTE ---
DATE: 01/04/2020 INTERVAL HISTORY: Patient complaining of some dysuria. I think she has a UTI or yeast infection. Mild abdominal tenderness, improving. No other new complaints. No acute events overnight. REVIEW OF SYSTEMS: Twelve point review of systems negative except as per interval history. LABS: Bilirubin 0.5, AST 31, ALT 77, alkaline phosphatase 97. VITALS: T-max 98.2 degrees, pulse 55, respirations 17, blood pressure 98/57, O2 saturation 98% on room air. PHYSICAL EXAMINATION: General: No acute distress. Vitals: As above. HEENT: Normocephalic, atraumatic. Moist mucous membranes. No cervical adenopathy. Cardiovascular: Regular rate and rhythm. No murmurs noted. Pulmonary: Clear to auscultation bilaterally. No wheezing, rales, or rhonchi. Abdomen: Soft. Minimal expected postop tenderness. Bowel sounds positive. Extremities: Peripheral pulses intact. No clubbing, cyanosis. Neurologic: Cranial nerves grossly intact. No focal deficits. Psychiatric: Normal mood and affect. Awake, alert, oriented x3. ASSESSMENT AND PLAN: 1. Choledocholithiasis and cholecystitis. Patient is status post laparoscopic cholecystectomy with intraoperative cholangiogram suggesting retained stone. Gastroenterology on board and likely going to perform endoscopic retrograde cholangiopancreatography tomorrow. Hopefully, patient will be to be able to go home afterwards. Continue with Zosyn for now. 2. Nausea and vomiting. Resolved. 3. Obesity. Patient has been counseled on diet and exercise. 4. Anemia mild. No need for further workup at this time. 5. Urinary tract infection versus yeast infection. We will check urinalysis and based on results, may start her on a dose of Diflucan.
[2020-01-04] MEDS: NS 1,000 ML IV SCH (18:59)
--- NOTE | 2020-01-04 21:39 | GENERAL SURGERY PROGRESS NOTE ---
DATE: 01/04/2020 SUBJECTIVE: She feels well. She is tolerating some diet. She says she is hungry. No fevers. No tachycardia. OBJECTIVE: Vital signs: Blood pressure 105/51. General: She is alert. Abdomen: Is soft. ADALBERTO drain serosanguineous. LABORATORIES: Her bilirubin remains normal. AST and ALT and alkaline phosphatase remain slightly elevated, but are downtrending. ASSESSMENT AND PLAN: This is a 24-year-old female with choledocholithiasis. She has had a long- standing cholelithiasis. She is clinically doing well. I do worry based off her cholangiogram and findings intraoperatively that she most likely has retained common bile duct sludge and warrants endoscopic retrograde cholangiopancreatography. I talked to Dr. Stein about this. I think his plan is for endoscopic retrograde cholangiopancreatography in the near future. We will follow along, but surgically she seems to be doing well. cc: Olesya Rodriguez MD
[2020-01-05] MEDS: NS 1,000 ML IV SCH (00:08)
[2020-01-05] MEDS: ZOSYN 3.375 GM in NS 50 ML IV SCH ×5 (00:09→23:20)
[2020-01-05] MEDS: PERIDEX MT SCH ×3 (00:18→23:20)
[2020-01-05] MEDS: PROTONIX IV SCH (05:38)
[2020-01-05] MEDS ORDERED: MYLICON DROPS ONE (12:27)
[2020-01-05] MEDS ORDERED: DIFLUCAN PO ONE (13:41)
[2020-01-05 15:05] LABS: AGAP 10; ALB/GLOB RATIO 1.5; ALBUMIN 3.6 g/dL (3.5-5.0); ALKALINE PHOSPHATASE 102 U/L (32-104); BUN 6 mg/dL (8-22); CALCIUM 8.9 mg/dL (8.8-10.2); CHLORIDE 104 mmol/L (98-107); COSMO 277; CREATININE 0.6 mg/dL (0.5-0.9); ESTIMATED GFR > 60; GLUCOSE 107 mg/dL (70-104); GOT 41 U/L (10-30); GPT 87 U/L (10-36); POTASSIUM 3.9 mmol/L (3.5-5.1); SODIUM 140 mmol/L (136-145); TCO2 26 mmol/L (25-35); TOTAL BILIRUBIN 0.72 mg/dL (0.20-1.00)
--- NOTE | 2020-01-05 17:57 | PROGRESS NOTE ---
DATE: 01/05/2020 INTERVAL HISTORY: Patient currently n.p.o. for likely ERCP later today. The plan is to do ERCP to remove likely retained stone and then likely remove surgical drain and then recheck labs in the morning. The patient is largely asymptomatic at this point. REVIEW OF SYSTEMS: Twelve point review of systems negative as per interval history. LABS: Labs pending for today. VITALS: T-max 98.2 degrees, pulse 58, respirations 18, blood pressure 109/51, O2 saturation 100% on room air. PHYSICAL EXAMINATION: General: No acute distress. Vitals: As above. HEENT: Normocephalic, atraumatic. Moist mucous membranes. No JVD. No cervical adenopathy. Cardiovascular: Regular rate and rhythm. No murmurs noted. Pulmonary: Clear to auscultation bilaterally. Abdomen: Soft. Minimal postop tenderness. Improving bowel sounds present. Extremities: Peripheral pulses intact. No clubbing or cyanosis. Neurologic: Cranial nerves grossly intact. No focal deficits. Psychiatric: Normal mood and affect. Awake, alert, oriented x3. ASSESSMENT AND PLAN: 1. Choledocholithiasis and cholecystitis. Patient is status post laparoscopic cholecystectomy with cholangiogram suggesting retained stone. Supposed to be going for ERCP later today. Still with surgical drain in place currently, but this will likely be removed after the ERCP. Recheck labs in the morning. If her LFTs remain good with the retained stone removed and the surgical drain out, then can likely be discharged home. 2. Nausea and vomiting, resolved. 3. Obesity. Patient has been counseled on diet and exercise. 4. Anemia mild. No need for further workup at this time. 5. Likely yeast infection. The patient on Zosyn for her cholecystitis as above. Reports symptoms of yeast infection. We will give a dose of fluconazole.
--- NOTE | 2020-01-05 20:33 | GENERAL SURGERY PROGRESS NOTE ---
DATE: 01/05/2020 SUBJECTIVE: Feels okay. No fevers. No tachycardia. OBJECTIVE: Vital signs: Blood pressure 109/51. Abdomen: Soft. Her ADALBERTO drain is serosanguineous with no bile. LABS: Bilirubin is 0.51. AST and ALT were down slightly yesterday. Alkaline phosphatase had approached normal range. ASSESSMENT AND PLAN: A 23-year-old female with choledocholithiasis. Plan is for endoscopic retrograde cholangiopancreatography today. We will follow up the results. Afterward, we can remove her drain and plan on going home tomorrow if her liver function tests remain appropriate. We will follow along. cc: Olesya Rodriguez MD
--- NOTE | 2020-01-05 20:53 | OPERATIVE NOTE ---
PROCEDURE DATE: 01/05/2020 PROCEDURES: 1. Endoscopic retrograde cholangiopancreatography. 2. Endoscope with sphincterotomy. 3. Basket sweep. 4. Endoscopic stent placement. PREOP DIAGNOSIS: Common bile duct stone. POSTOPERATIVE DIAGNOSIS: Debris in the common bile duct. No definite stones. DETAILS OF THE PROCEDURE: After informed consent and adequate intravenous sedation, the scope introduced in the esophagus, stomach, and duodenum. The ampulla appears normal. The initial injection was in the pancreatic duct, which was normal. Cholangiogram revealed mild debris in the distal bile duct. I did not see any definite stone. A wide sphincterotomy was done. The duct was flushed. Again, there are no definite stones seen. At this point a 7-Dutch 5 cm stent was deployed. The patient tolerated procedure well without any immediate complications. cc: Angela Grigsby MD
[2020-01-06] MEDS: PROTONIX IV SCH (05:52)
[2020-01-06] MEDS: SODIUM CHLORIDE 0.9% INJ SCH (05:52)
[2020-01-06] MEDS: ZOSYN 3.375 GM in NS 50 ML IV SCH ×2 (05:53→12:34)
--- NOTE | 2020-01-06 07:32 | Diag Imaging Result Doc PS360 ---
EXAM: ERCP-BILIARY AND PANCREATIC 01/05/2020 HISTORY: PLACEMENT OF STENT TECHNIQUE: ERCP, four images, COMMENT: There is visualization of the common bile duct. There are no definite filling defects. A stent was placed by Dr. Grigsby. IMPRESSION: Biliary stent placement. Electronically signed by Maicol Terrazas 01/06/2020 7:30 AM
[2020-01-06 08:16] LABS: AGAP 10; ALB/GLOB RATIO 1.4; ALBUMIN 3.5 g/dL (3.5-5.0); ALKALINE PHOSPHATASE 94 U/L (32-104); BUN 6 mg/dL (8-22); CALCIUM 8.5 mg/dL (8.8-10.2); CHLORIDE 102 mmol/L (98-107); COSMO 273; CREATININE 0.7 mg/dL (0.5-0.9); ESTIMATED GFR > 60; GLUCOSE 94 mg/dL (70-104); GOT 37 U/L (10-30); GPT 87 U/L (10-36); POTASSIUM 3.6 mmol/L (3.5-5.1); SODIUM 138 mmol/L (136-145); TCO2 26 mmol/L (25-35); TOTAL BILIRUBIN 0.59 mg/dL (0.20-1.00)
[2020-01-06] MEDS: PERIDEX MT SCH (10:30)
[2020-01-06 11:15] VITALS: BP 95/55
--- NOTE | 2020-01-06 12:01 | GASTROENTEROLOGY PROGRESS NOTE ---
DATE: 01/06/2020 SUBJECTIVE: Ms. Dean is a 24-year-old female who was walking in the room. The patient has denied any abdominal pain, nausea, or vomiting. She mentioned having 1 bowel movement today. OBJECTIVE: Vital Signs: Temperature 98.2, pulse 87, respirations 16, blood pressure 103/52, and oxygen saturation 98% on room air. The patient's weight is 193 pounds. BMI is 31.2 kg/m2. General: She is alert and oriented times 3 and in no acute distress. HEENT: Pale conjunctivae. No icterus. PERRLA. Neck: Supple. Lungs: Clear to auscultation. Cardiovascular: Regular rate and rhythm. Abdomen: Mildly tender and mildly distended. ADALBERTO drain on the right side with incision dry and intact. Active bowel sounds are heard in all four quadrants. Extremities: No clubbing. No cyanosis. No edema. Pedal pulses are 2+ and present bilaterally. Neurological: She is alert and oriented times 3. LABORATORY DATA: The patient has got no new hematology. Chemistries: Sodium is 138, potassium 3.6, chloride 102, carbon dioxide 26, anion gap 10, BUN 6, creatinine 0.7, glucose 94, calcium 8.5, total bilirubin 0.59, AST 37, ALT 87, and alkaline phosphatase 94. IMAGING: An ERCP x-ray showed that there was some common bile duct debris but there are no definite filling defects. A stent was placed by Dr. Grigsby. IMPRESSION AND PLAN: - Choledocholithiasis s/p ERCP sphincterotomy and stent placement - Elevated LFTs - S/p cholecystectomy - Obesity PLAN: Ms. Dean is a 24-year-old female who recently had a cholecystectomy done. Gastroenterology is following her for common bile duct stones. An ERCP was done yesterday by Dr. Grigsby and 7 Indonesian 5 cm stent was placed. The patient is currently on a gastrointestinal soft diet and she is able to tolerate her diet well. She is waiting for the surgeon to come and see her to remove the ADALBERTO drain out. We will continue her PPI's daily. The patient is also on IV fluids of normal saline at 75 mL/hr. She is receiving antibiotics, Zosyn. The patient can follow up with Dr. Grigsby in 6 weeks as an outpatient. We will continue to monitor the patient and follow the plan of care per the primary care provider and the surgeon. This plan was discussed with Dr. Aguilar. Please call us for any further questions. Dictated by MOE Upton for Yohanens Aguilar MD Physician Attestation I have seen and examined the patient. I have discussed and reviewed the note by Aria ROSA and agree with findings and plan as documented. Patient is doing well. She still has ADALBERTO drain in place that causes her some discomfort. No signs of infection. She is on empiric zosyn, which can be discontinued per surgery recommendations. LFTs improving. Will need repeat ERCP in 4-6 weeks for stent removal. Regular diet. MTDD
--- NOTE | 2020-01-06 21:31 | GENERAL SURGERY PROGRESS NOTE ---
DATE: 01/06/2020 SUBJECTIVE: Doing well. ERCP showed debris in the distal common duct. LFTs continues to downtrend. OBJECTIVE: Abdomen: Soft. ADALBERTO drain serosanguineous. Incisions are intact. ASSESSMENT/PLAN: This is a 23-year-old female with choledocholithiasis, status post cholecystectomy, doing well. Removed her drain today. We will see her in a week and remove her olamide. Given discharge instructions, and she will call with any problems. cc: Olesya Rodriguez MD
--- NOTE | 2020-01-07 22:33 | DISCHARGE SUMMARY ---
ADMISSION DATE: 01/01/2020 DISCHARGE DATE: 01/06/2020 DISPOSITION: Home. FOLLOWUP: 1. Dr. Rodriguez. 2. Dr. Rodriguez. 3. Dr. Grigsby. CONSULTATIONS DURING THIS ADMISSION: GI was consulted and patient was seen by Dr. Stein. Surgery was also consulted and patient was seen by Dr. Rodriguez, followed up with Dr. Shane. INVASIVE PROCEDURES DURING THIS ADMISSION: 1. Laparoscopic cholecystectomy with intraoperative cholangiogram was done which showed choledocholithiasis. 2. Endoscopic retrograde cholangiopancreatography was done by Dr. Grigsby where endoscope with a sphincterectomy, basket sweep, and endoscopic stent placement was also done by Dr. Grigsby on 01/05/2020. ADMISSION DIAGNOSES: 1. Symptomatic cholelithiasis. 2. Abnormal liver enzymes. 3. History of gastric sleeve procedure. DISCHARGE DIAGNOSES: 1. Abdominal pain on presentation secondary to biliary colic. 2. Acute cholecystitis with choledocholithiasis. 3. Normocytic anemia. 4. History of gastric sleeve procedure. DISCHARGE MEDICATIONS: 1. Lengby 5 mg p.o. q.6 p.r.n. 2. Kathie-Colace 1 tablet b.i.d. 3. Levofloxacin 500 mg p.o. daily. PRESENTING COMPLAINT: Right upper quadrant pain for 4 weeks. HISTORY OF PRESENTING COMPLAINT: Ms. Dean is a 24-year-old, female, who has a previous history of cholelithiasis, presented to the emergency room because of abdominal pain for about 2 weeks. She initially presented to [facility] where she was evaluated early on, went home. However, the pain did not get any better so she came to [facility] where she was re- evaluated and was admitted for symptomatic choledocholithiasis. Ms. Dean was admitted to the surgical floor, was started on broad-spectrum IV antibiotics and hydration. Surgery was consulted. Patient was seen by Dr. Rodriguez. A laparoscopic cholecystectomy was successfully done. Intraoperative cholangiogram was also done which showed some filling defect in the CBD. GI was consulted for ERCP, which was successfully done at a later date by Dr. Grigsby during this same hospitalization. After the ERCP, Ms. Dean referred to be feeling a whole lot better. Abdominal pain became subsided. She was tolerating her meals and has been having regular bowel movement. We think Ms. Dean is now clinically stable for discharge. She has been evaluated early on today by Surgery and they have removed the ADALBERTO drain. Per Dr. Rodriguez, Ms. Dean can be discharged and let her follow up with them on outpatient basis. Ms. Dean is therefore being discharged in stable condition. All the discharge instructions have been discussed with her including diet, medication compliance, and medical followup compliance. TIME SPENT FOR DISCHARGE: 35 minutes. cc: Prince Espinosa MD MTDFreddie
== END 2020-01-06 16:42 | disposition home or self-care (01) | DRG 419 ==
LOC: P.ED 17:21 → 4N 01-01 01:23 → SUATTDRO 01-01 01:23
PROVIDERS: ATTEND Internal Medicine
PROC: EN.ERCP (2020-01-05 12:31)